=== PATIENT | female | born 1935 | race Caucasian/White ===

== ENCOUNTER 2018-11-16 18:49 | Observation (INO) | payer MEDICARE ==
[2018-11-16 19:50] LABS: BASOPHIL % 0.2 % (0.0-0.4); Basophil (Absolute #) 0.02 (0-0.4); Eosinophil % 6.3 % (0.00-5.0); Eosinophil (Absolute #) 0.57 (0-0.5); Granulocyte Absolute (ANC) 6.21 (1.4-6.9); Hematocrit 39.2 % (35-47); Hemoglobin 12.8 gm/dl (12.0-16.0); Lymphocyte (Absolute #) 1.52 (1.0-4.6); Lymphocytes % 16.9 % (24.0-44.0); Mean Cell Volume 94.5 fl (78-100); Mean Corpuscular Hemoglobin 30.8 pg (26-32); Mean Corpuscular Hgb Concent. 32.7 g/dl (32-36); Mean Platelet Volume 9.8 fl (6-9.5); Monocyte (Absolute #) 0.68 (0.0-1.3); Monocytes % 7.6 % (0.0-12.0); Platelet Count 312 K/mm3 (150-450); Red Blood Count 4.15 M/mm3 (4.1-5.4); Red Cell Distribution Width 13.1 % (11.5-14.0)
[2018-11-16 20:01] LABS: INR 0.95 (0.8-3.0)
[2018-11-16 20:03] LABS: PTT 25.3 SECONDS (25.3-37.0)
[2018-11-16 20:04] LABS: ALBUMIN 4.4 g/dL (3.5-5.0); ANION GAP 13.9 MEQ/L (5-15); BILIRUBIN,TOTAL 0.4 mg/dL (0.2-1.3); Calcium 10.3 mg/dL (8.4-10.2); Creatinine 1 1.11 mg/dL (0.52-1.04); Potassium 3.8 mmol/L (3.5-5.1); Total Protein 7.3 g/dL (6.3-8.2)
--- NOTE | 2018-11-16 20:04 | ERPHSYRPT ---
- History of Present Illness Time Seen by Provider: 11/16/18 19:10 Source: patient, other (daughter) Exam Limitations: no limitations Patient Subjective Stated Complaint: Pt states "I have a really bad headache and all day my left arm and hand has been numb. I am also having a hard time walking straight." Triage Nursing Assessment: Pt alert and oriented X 3, skin pwd Pt ambulates with an unsteady gait, able to speak in clear full sentences. Pt in no apaprent respiratory distress. Physician History: Pt states, she was preparing dinner, when started c/o bifrontal headaches, her left arm became numb. She called her son, who brought her here. She states, her speech was slurred at that time, and felt left facial numbness, but her speech is normal now, her numbness improved, denies any weakness, but had some difficulty walking. She denies visual changes, chest pain, SOB, nausea, vomiting , fall, recent injury or other complaints. She states, once she was diagnosed with stroke years ago, but the MRI was negative. Timing/Duration: hour(s) (2.5) Quality: sharpness Head Pain Location: frontal Severity of Pain-Max: severe Severity of Pain-Current: severe Recent Head Trauma: no recent headache/trauma Modifying Factors: Improves With: other (none) Associated Symptoms: light-headedness, speech problems, trouble walking Previous symptoms: same symptoms as today Allergies/Adverse Reactions: No Known Drug Allergies Allergy (Verified 08/25/16 10:18) Home Medications: Aspirin [Baby Aspirin] 81 mg PO DAILY 12/17/12 [History] Ezetimibe 10 mg [Zetia 10 MG] 10 mg PO DAILY 12/17/12 [History] Metformin HCl [Glucophage] 1,000 mg PO BID 12/17/12 [History] Amlodipine Besylate 5 mg [Norvasc 5 mg] 10 mg PO DAILY 12/23/12 [History] Clopidogrel Bisulfate 75 mg [PLAVIX 75 MG Tablet] 75 mg PO DAILY 12/30/12 [History] Carboxymethylcellulose Sodium [Thera Tears] 1 drop OP BID 09/08/14 [History] Loratadine [Claritin] 10 mg PO DAILY 09/11/14 [History] Omeprazole [Prilosec] 20 mg PO DAILY 09/11/14 [History] Calcium Citrate/Vitamin D3 [Citracal + D Caplet] 2 tab PO BID 11/18/14 [History] Simvastatin 20 mg PO DAILY 11/18/14 [History] Ferrous Sulfate [Iron] 65 mg PO EVENING MEAL 12/31/15 [History] Glimepiride 1 tab PO DAILY 12/31/15 [History] Letrozole 1 tab PO DAILY 12/31/15 [History] Multivitamin W-Minerals/Lutein [Centrum Silver Tablet] 1 tab PO DAILY 12/31/15 [ History] Chlorthalidone 25 mg PO DAILY 02/26/16 [History] Levothyroxine Sodium 50 Mcg [Synthroid 50 Mcg] 50 mcg PO DAILY 02/26/16 [ History] Hx Tetanus, Diphtheria Vaccination/Date Given: Yes Hx Influenza Vaccination/Date Given: Yes Hx Pneumococcal Vaccination/Date Given: Yes Immunizations Up to Date: Yes - Review of Systems Constitutional: No Symptoms Eyes: No Symptoms Ears, Nose, & Throat: No Symptoms Respiratory: No Symptoms Cardiac: No Symptoms Abdominal/Gastrointestinal: No Symptoms Genitourinary Symptoms: No Symptoms Musculoskeletal: No Symptoms Skin: No Symptoms Neurological: Dizziness, Headache, Speech Changes, Other (left arm and facial numbness) Psychological: No Symptoms Endocrine: No Symptoms All Other Systems: Reviewed and Negative - Past Medical History Pertinent Past Medical History: Yes Neurological History: No Pertinent History ENT History: Cataracts Cardiac History: High Cholesterol, Hypertension Respiratory History: No Pertinent History Endocrine Medical History: Diabetes Type II, Hypothyroidism Musculoskeletal History: Arthritis GI Medical History: GERD History: Other Psycho-Social History: No Pertinent History Female Reproductive Disorders: Breast Cancer Other Medical History: Breast CA diagnosed 07/30.., Bladder tie up - Past Surgical History Past Surgical History: Yes Neuro Surgical History: No Pertinent History Cardiac: No Pertinent History Respiratory: No Pertinent History Gastrointestinal: Appendectomy, Cholecystectomy Genitourinary: Other Musculoskeletal: Joint Replacement Female Surgical History: Hysterectomy, Lumpectomy, Other Other Surgical History: cvl port placement. bilateral knee replacement. bladder lift. 4 lymph nodes removed with lumpectomy - Social History Smoking Status: Never smoker Exposure to second hand smoke: Yes Alcohol Use: None Drug Use: none Patient Lives Alone: No Significant Family History: diabetes, hypertension - Female History Hx Now: No - Nursing Vital Signs Nursing Vital Signs: Initial Vital Signs Temperature 98.2 F 11/16/18 18:59 Pulse Rate 92 H 11/16/18 18:59 Respiratory Rate 18 11/16/18 18:59 Blood Pressure 192/93 11/16/18 18:59 O2 Sat by Pulse Oximetry 98 11/16/18 18:59 Pain Scale Pain Intensity 4 - Physical Exam General Appearance: no apparent distress Eye Exam: PERRL/EOMI, eyes nml inspection Ears, Nose, Throat Exam: normal ENT inspection, TMs normal, pharynx normal, moist mucous membranes Neck Exam: normal inspection, non-tender, supple, No carotid bruit, No JVD Respiratory Exam: normal breath sounds, lungs clear, airway intact Cardiovascular Exam: regular rate/rhythm, normal heart sounds, normal peripheral pulses, No murmur, No edema Gastrointestinal/Abdominal Exam: soft, normal bowel sounds, No tenderness, No distention, No mass, No guarding, No pulsatile mass, No rebound Back Exam: normal inspection, No CVA tenderness, No vertebral tenderness Extremity Exam: normal inspection Mental Status Exam: alert, oriented x 3, cooperative, other (NIH scale: facial palsy : 1, limb ataxia: 1, altogether: 2) 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 Exam: normal speech, PERRL, No abnormal gag reflex, No abnormal pupil position, No abnormal speech, No facial asymmetry, No facial droop, No facial paresthesias, No facial weakness, No tongue deviation to L Coordination/Gait Exam: normal finger to nose, normal cerebellar function Motor/Sensory Exam: no motor deficit, no sensory deficit DTR Exam: bicep (R): 2+, bicep (L): 2+, knee (R): 2+, knee (L): 2+, ankle (R): 2 +, ankle (L): 2+ Skin Exam: normal color, warm, dry, No rash Lymphatic Exam: No adenopathy SpO2 Interpretation: normal SpO2: 98 O2 Delivery: Room Air - Course Nursing assessment & vital signs reviewed: Yes EKG Interpreted by Me: RATE (85/min), NORMAL AXIS, NORMAL INTERVALS, Right Bundle Branch Block, Non-specific ST Changes - Radiology Exams Chest X-ray Interpretation: Interpreted by me, Negative - CT Exams Head CT Interpretation: Negative, Tele-radiologist Report, Other (partial opacification of R mastoid air cells.) Ordered Tests: Active Orders 24 hr Category Date Time Status ACCUCHECK [Accucheck] STAT Care 11/16/18 19:18 Active 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 Care 11/16/18 19:27 Active EKG-ER Only STAT Care 11/16/18 19:18 Active IV Insertion STAT Care 11/16/18 19:18 Active Oxygen-ED Only Nasal Cannula 2 lpm Care 11/16/18 19:24 Active CHEST 1 VIEW (PORTABLE) Stat Exams 11/16/18 19:28 Taken HEAD WITHOUT CONTRAST [CT] Stat Exams 11/16/18 19:12 Taken CBC W DIFF Stat Lab 11/16/18 19:10 Completed CMP Stat Lab 11/16/18 19:10 Completed Erythrocyte Sedimentation Rate Stat Lab 11/16/18 19:10 Completed PROTIME WITH INR Stat Lab 11/16/18 19:10 Completed PTT Stat Lab 11/16/18 19:10 Completed TROPONIN Q3H Lab 11/16/18 19:10 Completed TROPONIN Q3H Lab 11/17/18 01:30 Ordered TROPONIN Q3H Lab 11/17/18 04:30 Ordered TROPONIN Q3H Lab 11/17/18 07:30 Ordered UA W/RFX UR CULTURE Stat Lab 11/16/18 20:30 Completed Medication Summary Generic Name Dose Route Start Last Admin Trade Name Freq PRN Reason Stop Dose Admin Aspirin 325 mg 11/17/18 22:11 Ecotrin 325 Mg PO 11/17/18 22:12 NOW ONE Discontinued Medications Generic Name Dose Route Start Last Admin Trade Name Freq PRN Reason Stop Dose Admin Diphenhydramine HCl 25 mg 11/16/18 20:37 11/16/18 21:13 Benadryl 50 Mg/Ml IV 11/16/18 20:38 25 mg STAT ONE Administration Diphenhydramine HCl Confirm 11/16/18 21:08 Benadryl 50 Mg/Ml Administered 11/16/18 21:09 Dose 50 mg .ROUTE .STK-MED ONE Fentanyl Citrate 25 mcg 11/16/18 21:45 Sublimaze 100 Mcg/2 Ml IV 11/16/18 21:46 STAT ONE Ketorolac Tromethamine 15 mg 11/16/18 20:37 11/16/18 21:12 Toradol 30 Mg Injection IV 11/16/18 20:38 15 mg STAT ONE Administration Ketorolac Tromethamine Confirm 11/16/18 21:08 Toradol 30 Mg Injection Administered 11/16/18 21:09 Dose 30 mg .ROUTE .STK-MED ONE Labetalol HCl 10 mg 11/16/18 20:20 11/16/18 21:28 Trandate 20 Mg/5 Ml Syringe IV 11/16/18 20:21 10 mg STAT ONE Administration Labetalol HCl Confirm 11/16/18 20:33 Trandate 20 Mg/5 Ml Syringe Administered 11/16/18 20:34 Dose 20 mg IV .STK-MED ONE Ondansetron HCl 4 mg 11/16/18 21:45 Zofran 4 Mg/2 Ml Vial IV 11/16/18 21:46 STAT ONE Lab/Rad Data: Laboratory Result Diagrams 11/16/18 19:10 11/16/18 19:10 Laboratory Results 11/16/18 11/16/18 11/16/18 Range/Units 20:30 19:10 19:10 WBC (4.0-10.5) K/mm3 RBC (4.1-5.4) M/mm3 Hgb (12.0-16.0) gm/dl Hct (35-47) % MCV (78-100) fl MCH (26-32) pg MCHC (32-36) g/dl RDW (11.5-14.0) % Plt Count (150-450) K/mm3 MPV (6-9.5) fl Gran % (36.0-66.0) % Eos # (Auto) (0-0.5) Absolute Lymphs (auto) (1.0-4.6) Absolute Monos (auto) (0.0-1.3) Lymphocytes % (24.0-44.0) % Monocytes % (0.0-12.0) % Eosinophils % (0.00-5.0) % Basophils % (0.0-0.4) % Absolute Granulocytes (1.4-6.9) Basophils # (0-0.4) ESR (0-20) mm/hr PT 11.0 (9.95-12.35) SECONDS INR 0.95 (0.8-3.0) APTT 25.3 (25.3-37.0) SECONDS Sodium (137-145) mmol/L Potassium (3.5-5.1) mmol/L Chloride (98-107) mmol/L Carbon Dioxide (22-30) mmol/L Anion Gap (5-15) MEQ/L BUN (7-17) mg/dL Creatinine (0.52-1.04) mg/dL Estimated GFR ML/MIN Glucose (74-106) mg/dL Calcium (8.4-10.2) mg/dL Total Bilirubin (0.2-1.3) mg/dL AST (14-36) U/L ALT (0-35) U/L Alkaline Phosphatase (38-126) U/L Troponin I < 0.012 (0.000-0.034) ng/mL Serum Total Protein (6.3-8.2) g/dL Albumin (3.5-5.0) g/dL Urine Color YELLOW (YELLOW) Urine Appearance CLEAR (CLEAR) Urine pH 8.0 (5-6) Ur Specific [place] 1.015 (1.005-1.025) Urine Protein NEGATIVE (Negative) Urine Ketones NEGATIVE (NEGATIVE) Urine Blood NEGATIVE (0-5) Prasad/ul Urine Nitrite NEGATIVE (NEGATIVE) Urine Bilirubin NEGATIVE (NEGATIVE) Urine Urobilinogen NEGATIVE (0-1) mg/dL Ur Leukocyte Esterase NEGATIVE (NEGATIVE) Urine WBC (Auto) 0-2 (0-5) /HPF Urine RBC (Auto) NONE (0-2) /HPF U Epithel Cells (Auto) NONE (FEW) /HPF Urine Bacteria (Auto) NONE (NEGATIVE) /HPF Urine Culture Reflexed NO (NO) Urine Glucose NEGATIVE (NEGATIVE) mg/dL 11/16/18 11/16/18 Range/Units 19:10 19:10 WBC 9.0 (4.0-10.5) K/mm3 RBC 4.15 (4.1-5.4) M/mm3 Hgb 12.8 (12.0-16.0) gm/dl Hct 39.2 (35-47) % MCV 94.5 (78-100) fl MCH 30.8 (26-32) pg MCHC 32.7 (32-36) g/dl RDW 13.1 (11.5-14.0) % Plt Count 312 (150-450) K/mm3 MPV 9.8 H (6-9.5) fl Gran % 69.0 H (36.0-66.0) % Eos # (Auto) 0.57 H (0-0.5) Absolute Lymphs (auto) 1.52 (1.0-4.6) Absolute Monos (auto) 0.68 (0.0-1.3) Lymphocytes % 16.9 L (24.0-44.0) % Monocytes % 7.6 (0.0-12.0) % Eosinophils % 6.3 H (0.00-5.0) % Basophils % 0.2 (0.0-0.4) % Absolute Granulocytes 6.21 (1.4-6.9) Basophils # 0.02 (0-0.4) ESR 12 (0-20) mm/hr PT (9.95-12.35) SECONDS INR (0.8-3.0) APTT (25.3-37.0) SECONDS Sodium 135 L (137-145) mmol/L Potassium 3.8 (3.5-5.1) mmol/L Chloride 97 L (98-107) mmol/L Carbon Dioxide 28 (22-30) mmol/L Anion Gap 13.9 (5-15) MEQ/L BUN 23 H (7-17) mg/dL Creatinine 1.11 H (0.52-1.04) mg/dL Estimated GFR 50.1 ML/MIN Glucose 161 H (74-106) mg/dL Calcium 10.3 H (8.4-10.2) mg/dL Total Bilirubin 0.40 (0.2-1.3) mg/dL AST 20 (14-36) U/L ALT 21 (0-35) U/L Alkaline Phosphatase 70 (38-126) U/L Troponin I (0.000-0.034) ng/mL Serum Total Protein 7.3 (6.3-8.2) g/dL Albumin 4.4 (3.5-5.0) g/dL Urine Color (YELLOW) Urine Appearance (CLEAR) Urine pH (5-6) Ur Specific [place] (1.005-1.025) Urine Protein (Negative) Urine Ketones (NEGATIVE) Urine Blood (0-5) Prasad/ul Urine Nitrite (NEGATIVE) Urine Bilirubin (NEGATIVE) Urine Urobilinogen (0-1) mg/dL Ur Leukocyte Esterase (NEGATIVE) Urine WBC (Auto) (0-5) /HPF Urine RBC (Auto) (0-2) /HPF U Epithel Cells (Auto) (FEW) /HPF Urine Bacteria (Auto) (NEGATIVE) /HPF Urine Culture Reflexed (NO) Urine Glucose (NEGATIVE) mg/dL - Progress Progress: improved Air Movement: good Progress Note: 11/16/18 23:12 Pt was evaluated by Teleneurology, discussed the case with Dr Blum, he agreed with the plan to admit her for observation, she is not candidate for thrombolytic treatment, blood pressure improved after Labetalol and ASA given, BP currently 178/82, headaches improved, we also called Dr Fried, discussed her results and current condition, he agreed to admit her for observation. Patient and her daughter were informed and agreed. Blood Culture(s) Obtained: No Antibiotics given: No Discussed with .: Fariha Will see patient in: hospital (observation) Counseled pt/family regarding: lab results, diagnosis, rad results - Departure Departure Disposition: Observation Clinical Impression: Transient ischemic attack (TIA) Hypertension Qualifiers: Hypertension type: unspecified Qualified Code(s): I10 - Essential (primary) hypertension Headache Qualifiers: Headache type: unspecified Headache chronicity pattern: acute headache Intractability: not intractable Qualified Code(s): R51 - Headache Condition: Stable Critical Care Time: Yes Critical Care Time(excluding separately billable procedures): 30-74 minutes Referrals: DIVINE FRIED [Primary Care Provider] - Instructions: Headache, Adult (DC)
[2018-11-16 20:15] LABS: Erythrocyte Sedimentation Rate 12 mm/hr (0-20)
[2018-11-16] MEDS ORDERED: TRANDATE 20 MG/5 ML SYRINGE IV ONE ×2 (20:20→20:33)
[2018-11-16] MEDS ORDERED: BENADRYL 50 MG/ML IV ONE (20:37)
[2018-11-16] MEDS ORDERED: TORAdol 30 mg Injection IV ONE (20:37)
[2018-11-16 20:45] LABS: Appearance CLEAR (CLEAR); Bilirubin NEGATIVE (NEGATIVE); Blood NEGATIVE Ery/ul (0-5); Glucose NEGATIVE (NEGATIVE); Ketones NEGATIVE (NEGATIVE); Leukocyte Esterase NEGATIVE (NEGATIVE); Nitrite NEGATIVE (NEGATIVE); Protein,Urine Dip NEGATIVE (Negative); Specific Gravity 1.015 (1.005-1.025); Urobilinogen NEGATIVE mg/dL (0-1); WBC 0-2 /HPF (0-5)
[2018-11-16] MEDS ORDERED: BENADRYL 50 MG/ML ONE (21:08)
[2018-11-16] MEDS ORDERED: TORAdol 30 mg Injection ONE (21:08)
[2018-11-16] MEDS ORDERED: Zofran 4 MG/2 ML VIAL IV ONE (21:45)
[2018-11-16] MEDS ORDERED: SUBLIMAZE 100 MCG/2 ML IV ONE (21:45)
[2018-11-16] MEDS ORDERED: MORPHINE SULFATE 2 MG INJ IV PRN (23:17)
[2018-11-16] MEDS ORDERED: Zofran 4 MG/2 ML VIAL IV PRN (23:17)
[2018-11-16] MEDS ORDERED: NovoLIN R SQ PRN (23:17)
[2018-11-16] MEDS ORDERED: TYLENOL 325 MG PO PRN (23:17)
[2018-11-17] MEDS ORDERED: SUBLIMAZE 100 MCG/2 ML ONE (00:13)
[2018-11-17] MEDS ORDERED: Ecotrin 325 MG ONE (00:20)
[2018-11-17 05:51] LABS: BASOPHIL % 0.2 % (0.0-0.4); Basophil (Absolute #) 0.02 (0-0.4); Eosinophil % 3.1 % (0.00-5.0); Granulocyte Absolute (ANC) 6.25 (1.4-6.9); Granulocytes % 64.7 % (36.0-66.0); Hematocrit 35.4 % (35-47); Hemoglobin 11.6 gm/dl (12.0-16.0); Lymphocyte (Absolute #) 2.25 (1.0-4.6); Lymphocytes % 23.3 % (24.0-44.0); Mean Cell Volume 94.1 fl (78-100); Mean Corpuscular Hgb Concent. 32.8 g/dl (32-36); Mean Platelet Volume 9.5 fl (6-9.5); Monocyte (Absolute #) 0.84 (0.0-1.3); Monocytes % 8.7 % (0.0-12.0); Platelet Count 287 K/mm3 (150-450); Red Blood Count 3.76 M/mm3 (4.1-5.4); Red Cell Distribution Width 13.1 % (11.5-14.0); White Blood Count 9.7 K/mm3 (4.0-10.5)
[2018-11-17 06:07] LABS: ANION GAP 14.5 MEQ/L (5-15); Calcium 9.3 mg/dL (8.4-10.2); Creatinine 1 1.05 mg/dL (0.52-1.04); Potassium 3.9 mmol/L (3.5-5.1)
[2018-11-17 06:13] LABS: Mean Corpuscular Hemoglobin 30.8 pg (26-32)
--- NOTE | 2018-11-17 08:37 | XRAY ---
Indication: Headache. Left arm/hand weakness. Gait changes. Multiple contiguous axial images obtained through the head without contrast. Comparison: December 17, 2012. There is again age-appropriate global atrophy and mild periventricular degenerative micro-ischemia bilaterally. No acute intracranial hemorrhage, abnormal extra-axial fluid collection, or mass effect. Fourth ventricle is midline without hydrocephalus. Bony calvarium intact. Visualized paranasal sinuses are clear. Again partial opacification of the right mastoid air cells. Impression: Nonacute senile brain. Stable partial opacification of the right mastoid air cells presumed inflammatory. CT DI 68.98
--- NOTE | 2018-11-17 08:41 | XRAY ---
Indication: Dizziness. Headache. Left upper extremity numbness. Comparison: October 03, 2014. Portable chest demonstrates new left peripheral mid lung patchy airspace opacity. Stable left base atelectasis/scarring. Remaining heart and lungs unremarkable. Bony thorax intact again with mild osteopenia and degenerative changes. Interval L2 kyphoplasty. Stable left axillary surgical clips. Impression: New left midlung airspace disease. Correlate clinically. Comment: Left lung finding not reported on preliminary interpretation by the ER clinician. Telephone report given to Dr. Ballard at 0840 hrs. on November 17, 2018.
[2018-11-17] MEDS ORDERED: ULTRAM 50 MG PO PRN (09:21)
[2018-11-17] MEDS ORDERED: ULTRAM 50 MG PO SCH (09:30)
[2018-11-17] MEDS ORDERED: Calcium 500MG W/Vit D Tablet PO SCH (10:00)
[2018-11-17] MEDS ORDERED: MAG-OX 400 PO SCH (10:00)
[2018-11-17] MEDS ORDERED: ECOTRIN 81 MG PO SCH (10:00)
[2018-11-17] MEDS ORDERED: NON-FORMULARY ITEM (Ferrous Gluconate [Ferrous Gluconate] 324 MG) PO SCH (10:00)
[2018-11-17] MEDS ORDERED: CALCIUM CITRATE PO SCH (10:00)
[2018-11-17] MEDS ORDERED: lamISIL 250 MG PO SCH (10:00)
[2018-11-17] MEDS ORDERED: NON-FORMULARY ITEM (Carboxymethylcellulose Sodium [Thera Tears] 1 DROP) OP SCH (10:00)
[2018-11-17] MEDS ORDERED: NON-FORMULARY ITEM (Multivitamin W-Minerals/Lutein [Centrum Silver Tablet] 1 TAB) PO SCH (10:00)
[2018-11-17] MEDS ORDERED: LETROZOLE PO SCH (10:00)
[2018-11-17] MEDS ORDERED: Zetia 10 MG PO SCH (10:00)
[2018-11-17] MEDS ORDERED: PLAVIX 75 MG Tablet PO SCH (10:00)
[2018-11-17] MEDS ORDERED: MEDICATION INTERVENTION MC SCH (10:00)
[2018-11-17] MEDS ORDERED: Protonix 40MG Tablet PO SCH (10:00)
[2018-11-17] MEDS ORDERED: CLARITIN 10 MG PO SCH (10:00)
[2018-11-17] MEDS ORDERED: FEOSOL 325 MG PO SCH (10:00)
[2018-11-17] MEDS ORDERED: NON-FORMULARY ITEM (Fexofenadine Hcl [Allegra] 180 MG) PO SCH (10:00)
[2018-11-17] MEDS ORDERED: BABY ASPIRIN 81 MG CHEW PO SCH (10:00)
[2018-11-17] MEDS ORDERED: Amaryl 2 MG PO SCH (10:00)
[2018-11-17] MEDS ORDERED: NORVASC 5 MG PO SCH (10:00)
[2018-11-17] MEDS ORDERED: THERAGRAN MULTIVITAMIN PO SCH (10:00)
[2018-11-17] MEDS ORDERED: GLIMEPIRIDE PO SCH (10:00)
[2018-11-17] MEDS ORDERED: NON-FORMULARY ITEM (Omeprazole [Prilosec] 20 MG) PO SCH (10:00)
[2018-11-17] MEDS ORDERED: VITAMIN D3 PO SCH (10:00)
[2018-11-17] MEDS: Artificial Tears 15 ML OP SCH ×2 (10:29→20:38)
[2018-11-17] MEDS: SYNTHROID 75 MCG PO SCH (10:56)
[2018-11-17] MEDS: Glucophage 500 MG PO SCH ×2 (10:56→17:11)
--- NOTE | 2018-11-17 13:55 | SSS ---
DISCHARGE DIAGNOSES: 1) HEADACHE. 2) WEAKNESS OF LEFT ARM. HOSPITAL COURSE: The patient is an 83 year-old white female who reports she had a really bad headache all day long. She reported she never has headaches. She tried medication but did not improve. She began having some problems with what she thought was some slurring of the speech and left arm numbness and difficulty with dropping things with the left hand. She presented to the emergency room where tele-neurology consult was obtained. The patient was improving during her stay in the emergency room and by the next morning she had essentially resolved to her normal state of health and the headache was much improved but not gone. PAST MEDICAL HISTORY: The patient had history of diabetes mellitus type 2. She previously had breast cancer, hypothyroid, hypertension and hyperlipidemia. PAST SURGICAL HISTORY: She has had appendectomy, cholecystectomy, hysterectomy, lumpectomy and bilateral knee replacements. HOME MEDICATIONS: Her current home medications are aspirin 81 mg a day, Zetia 10 mg a day, Metformin 1,000 mg b.i.d., Norvasc 5 mg two tablets daily, Plavix 75 mg a day, loratadine 10 mg a day, omeprazole 20 mg a day, Simvastatin 20 mg a day, iron 65 mg a day, Glimepiride 1 tablet daily, omeprazole 1 tablet daily, chlorthalidone 25 mg daily, levothyroxine 50 mcg daily. ALLERGIES: NKDA. PHYSICAL EXAMINATION: The patient's vital signs on admission temperature 98.2F, pulse 92, respiratory rate 18, blood pressure 192/93. O2 saturations 98% on room air. HEENT: Normocephalic, atraumatic. Pupils equal round reactive to light. Extraocular movements intact. Oropharynx is pink and moist. NECK: Supple without lymphadenopathy, thyromegaly or JVD. CHEST: Clear to auscultation. HEART: Regular rate and rhythm without murmurs, rubs or gallops. ABDOMEN: Soft. No palpable masses. EXTREMITIES: Without cyanosis, clubbing or edema. NEUROLOGIC: The patient is alert and oriented x3. There were no focal neurologic signs at this time. LAB DATA AND TESTS: Normal CBC. Her sugar 122, BUN 22, creatinine 1.05, sodium 135. Patient's international normalized ratio was 0.95. UA normal. CT scan of the brain was essentially negative senile brain nonacute. Chest x-ray showed a new left mid lung airspace disease however there was no evidence of pneumonia whatsoever. The patient is entirely symptom-free in regards to her chest. ASSESSMENT: The patient has had headache and hypertension possibly leading to neurologic symptoms. She had an apparent transient ischemic attack as the patient completely resolved to her normal state of health presently. Her headache is much resolved. I will give her some tramadol to see if we can resolve it completely. The patient again did have a tele-neurology consult. She is already on aspirin and Plavix presently. The patient has resolved her symptoms and appears to be ready for discharge back home again. She is instructed to come back to the hospital if she has any symptoms like she had previously with the slurred speech and arm weakness and numbness. She is to see me in the office in one week in follow up otherwise. She will continue her home medications including aspirin and Plavix.
[2018-11-17] MEDS ORDERED: NON-FORMULARY ITEM (Metformin Hcl [Glucophage] 1,000 MG) PO SCH (17:00)
[2018-11-17] MEDS ORDERED: ZOCOR 20MG PO SCH (22:00)
[2018-11-17] MEDS ORDERED: Ecotrin 325 MG PO ONE (22:11)
[2018-11-18] MEDS ORDERED: SYNTHROID 50 MCG PO SCH (06:00)
[2018-11-18] MEDS: SYNTHROID 75 MCG PO SCH (06:03)
[2018-11-18 06:36] VITALS: O2SAT 94
[2018-11-18] MEDS: Glucophage 500 MG PO SCH (07:31)
[2018-11-18 08:26] VITALS: BP 146/66; PULSE 74
[2018-11-19] MEDS ORDERED: Fosamax 70 MG PO SCH (09:45)
== END 2018-11-18 09:47 | disposition home or self-care (01) ==
LOC: ED 18:49 → MED SURG 11-17 00:48
PROVIDERS: ADMIT Family Medicine; ATTEND Family Medicine
DX: R51 Headache (principal); G45.9 Transient cerebral ischemic attack, unspecified; R53.1 Weakness; E11.9 Type 2 diabetes mellitus without complications; Z85.3 Personal history of malignant neoplasm of breast; I10 Essential (primary) hypertension; E78.5 Hyperlipidemia, unspecified; E03.9 Hypothyroidism, unspecified; Z79.01 Long term (current) use of anticoagulants; Z79.899 Other long term (current) drug therapy
CPT/HCPCS: 70450; 80048; 80053; 81001; 82962; 83036; 84484; 85025; 85610; 85652; 85730; 93005; 93041; 93268; 94762; 96374; 96375; 99291; G0378; Q3014; 36000; 36415; 71045; 99285; J1200; J1885; J2405; J3010; A9270-GY

== ENCOUNTER 2021-12-20 10:28 | Emergency (ER) | payer MEDICARE ==
--- NOTE | 2021-12-20 10:32 | ERPHSYRPT ---
- History of Present Illness Time Seen by Provider: 12/20/21 10:31 Source: patient, family, EMS Exam Limitations: clinical condition Physician History: This is an 86-year-old white female patient of Dr. López who has had a history of TIAs in the past as well as recurrent UTIs and presents via EMS with a mental status change. At approximately 8:30 AM this morning, the patient was texting her daughter. Soon after, the patient's son, who she lives with, noticed the mom was not speaking. There is a question of right facial droop as well. She was moving all extremities but not as usual per the son. Ambulance service was called. Blood sugar was 277. Patient has a history of diabetes, hypertension, hypothyroidism, gastroesophageal reflux disease, elevated cholesterol, and breast cancer in the past. Patient's initial blood pressure upon arrival to the emergency department was 198/112. Patient was sent directly to the CAT scan for stroke protocol CAT scan of the head. Timing/Duration: today Severity: moderate Character of Deficits: new weakness, unable to speak Deficits: decrease ability to stand, decrease ability to walk Baseline/Normal Cognition: alert oriented x 3 Current Cognition: alert but confused Baseline Gait: walks w/o assistance Associated Symptoms: confusion, other (Trouble speaking) Allergies/Adverse Reactions: No Known Drug Allergies Allergy (Verified 12/20/21 10:39) Home Medications: Aspirin [Baby Aspirin] 81 mg PO DAILY 12/17/12 [History] Ezetimibe 10 mg [Zetia 10 MG] 10 mg PO DAILY 12/17/12 [History] Metformin HCl [Glucophage] 1,000 mg PO BIDWM 12/17/12 [History] Amlodipine Besylate 5 mg [Norvasc 5 mg] 10 mg PO DAILY 12/23/12 [History] Clopidogrel Bisulfate 75 mg [PLAVIX 75 MG Tablet] 75 mg PO DAILY 12/30/12 [History] Carboxymethylcellulose Sodium [Thera Tears] 1 drop OP BID 09/08/14 [History] Omeprazole [Prilosec] 20 mg PO DAILY 09/11/14 [History] Calcium Citrate/Vitamin D3 [Citracal + D Caplet] 1 tab PO DAILY 11/18/14 [History] Simvastatin 20 mg PO DAILY 04/04/15 [History] Glimepiride 1 tab PO DAILY 12/31/15 [History] Letrozole 1 tab PO DAILY 12/31/15 [History] Multivitamin W-Minerals/Lutein [Centrum Silver Tablet] 1 tab PO DAILY 12/31/15 [History] Chlorthalidone 25 mg PO DAILY 02/26/16 [History] Levothyroxine Sodium 50 Mcg [Synthroid 50 Mcg] 75 mcg PO 0600 02/26/16 [History] Alendronate Sodium 70 mg PO WEEKLY 11/17/18 [History] Ferrous Gluconate 324 mg PO DAILY 11/17/18 [History] Fexofenadine HCl [Ruby] 180 mg PO DAILY 11/17/18 [History] Magnesium Oxide 400 mg [Mag-Ox 400] 400 mg PO DAILY 11/17/18 [History] terbinafine HCL [Lamisil] 250 mg PO DAILY 11/17/18 [History] Hx Tetanus, Diphtheria Vaccination/Date Given: Yes Hx Influenza Vaccination/Date Given: Yes Hx Pneumococcal Vaccination/Date Given: Yes - Past Medical History Pertinent Past Medical History: Yes Neurological History: No Pertinent History ENT History: Cataracts Cardiac History: High Cholesterol, Hypertension Respiratory History: No Pertinent History Endocrine Medical History: Diabetes Type II, Hypothyroidism Musculoskeletal History: Arthritis GI Medical History: GERD History: Other Psycho-Social History: No Pertinent History Female Reproductive Disorders: Breast Cancer Other Medical History: Breast CA diagnosed 07/30.., Bladder tie up - Past Surgical History Past Surgical History: Yes Neuro Surgical History: No Pertinent History Cardiac: No Pertinent History Respiratory: No Pertinent History Gastrointestinal: Appendectomy, Cholecystectomy Genitourinary: Other Musculoskeletal: Joint Replacement Female Surgical History: Hysterectomy, Lumpectomy, Other Other Surgical History: cvl port placement. bilateral knee replacement. bladder lift. 4 lymph nodes removed with lumpectomy. Back surgery - Social History Smoking Status: Never smoker Exposure to second hand smoke: Yes Alcohol Use: None Drug Use: none Patient Lives Alone: No Significant Family History: diabetes, hypertension - Nursing Vital Signs Nursing Vital Signs: Initial Vital Signs Temperature 98.7 F 12/20/21 10:39 Pulse Rate 89 12/20/21 10:39 Respiratory Rate 20 12/20/21 10:39 Blood Pressure 198/112 12/20/21 10:39 O2 Sat by Pulse Oximetry 96 12/20/21 10:39 Pain Scale Pain Intensity 0 - Therese Coma Scale Best Eye Response (Therese): (4) open spontaneously Best Verbal Response ([place]): (1) no verbal response Best Motor Response (Therese): (6) obeys commands [place] Total: 11 - Physical Exam General Appearance: no apparent distress, alert Eye Exam: bilateral eye: normal inspection, PERRL, EOMI Ears, Nose, Throat Exam: normal ENT inspection, moist mucous membranes Neck Exam: normal inspection, non-tender, supple, full range of motion Respiratory: normal breath sounds, lungs clear, airway intact, No chest tenderness, No respiratory distress Cardiovascular: regular rate/rhythm, normal heart sounds, normal peripheral pulses Gastrointestinal: soft, normal bowel sounds, No tenderness Pelvic Exam: not done Rectal Exam: not done Back Exam: normal inspection, No CVA tenderness, No vertebral tenderness Extremity Exam: normal inspection, pelvis stable Mental Status: alert, other (Looks at you but does not answer questions. 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 Patient looks at you as though she understands when you are speaking to her but is unable to speak. She does not open her mouth or smile or stick her tongue out. Her facial exam does not appear to be 1 of an equal drooping. Ordered Tests: Active Orders 24 hr Category Date Time Status Catheter-[place] STAT Care 12/20/21 10:40 Active EKG-ER Only STAT Care 12/20/21 10:40 Active IV Insertion STAT Care 12/20/21 10:40 Active NPO (ED) STAT Care 12/20/21 10:40 Active Pulse Oximetry (ED) STAT Care 12/20/21 10:40 Active Tele-Health Consult ROUTINE Cons 12/20/21 12:02 Active HEAD WITHOUT CONTRAST [CT] Stat Exams 12/20/21 10:32 Completed CBC W DIFF Stat Lab 12/20/21 10:45 Completed CMP Stat Lab 12/20/21 10:45 Completed T4 (Thyroxine) Stat Lab 12/20/21 Completed TSH, 3RD Generation Stat Lab 12/20/21 10:45 Completed UA W/RFX CULTURE Stat Lab 12/20/21 11:25 Ordered Medication Summary Discontinued Medications Generic Name Dose Route Start Last Admin Trade Name Cezar PRN Reason Stop Dose Admin Labetalol HCl 20 mg 12/20/21 10:57 12/20/21 11:06 Labetalol Hcl 100 Mg/20 Ml Mdv IV 12/20/21 10:58 Not Given STAT ONE Labetalol HCl Confirm 12/20/21 11:04 Labetalol Hcl 20 Mg/4 Ml Disp.Syringe Administered 12/20/21 11:05 Dose 20 mg IV .STK-MED ONE Labetalol HCl 20 mg 12/20/21 11:07 12/20/21 11:08 Labetalol Hcl 20 Mg/4 Ml Disp.Syringe IV 12/20/21 11:08 20 mg STAT ONE Administration Lab/Rad Data: Laboratory Result Diagrams 12/20/21 10:45 12/20/21 10:45 Laboratory Results 12/20/21 12/20/21 12/20/21 Range/Units Unknown 10:45 10:45 WBC 9.0 (4.0-10.5) K/mm3 RBC 4.41 (4.1-5.4) M/mm3 Hgb 13.5 (12.0-16.0) gm/dl Hct 41.1 (35-47) % MCV 93.2 (78-100) fl MCH 30.6 (26-32) pg MCHC 32.8 (32-36) g/dl RDW 13.5 (11.5-14.0) % Plt Count 321 (150-450) K/mm3 MPV 9.6 (7.5-11.0) fl Gran % 86.4 H (36.0-66.0) % Eos # (Auto) 0.03 (0-0.5) Absolute Lymphs (auto) 0.92 L (1.0-4.6) Absolute Monos (auto) 0.27 (0.0-1.3) Lymphocytes % 10.2 L (24.0-44.0) % Monocytes % 3.0 (0.0-12.0) % Eosinophils % 0.3 (0.00-5.0) % Basophils % 0.1 (0.0-0.4) % Absolute Granulocytes 7.75 H (1.4-6.9) Basophils # 0.01 (0-0.4) Sodium 136 L (137-145) mmol/L Potassium 3.7 (3.5-5.1) mmol/L Chloride 97 L (98-107) mmol/L Carbon Dioxide 27 (22-30) mmol/L Anion Gap 15.1 H (5-15) MEQ/L BUN 17 (7-17) mg/dL Creatinine 0.74 (0.52-1.04) mg/dL Estimated GFR > 60.0 ML/MIN Glucose 196 H (74-106) mg/dL Calcium 9.3 (8.4-10.2) mg/dL Total Bilirubin 0.60 (0.2-1.3) mg/dL AST 25 (14-36) U/L ALT 19 (0-35) U/L Alkaline Phosphatase 58 (38-126) U/L Serum Total Protein 7.2 (6.3-8.2) g/dL Albumin 4.4 (3.5-5.0) g/dL Thyroxine (T4) 11.5 H (5.53-10.96) ug/dL TSH 3rd Generation 1.620 (0.47-4.68) mIU/L - Progress Progress: improved, re-examined Progress Note: 12/20/21 11:23 CAT scan of the head without contrast shows a nonacute senile brain with partial opacification of the right mastoid air cells. There is no evidence of any intracranial bleed Clinical update: After patient received labetalol 20 mg intravenously, her systolic blood pressure dropped into the 140s. Clinically, patient now moves edson th her upper extremities and opens her mouth and sticks out her tongue. The tongue is midline. She is still nonverbal. 12/20/21 12:40 Medical decision making: Dr. Schrader, our telehealth neurologist conversion developer, recommended infusion (bolus plus hour infusion) of tPA. We gave the patient a bolus of 5.7 mg of intravenous tPA over a minute. This was followed by 51.7 mg over 1 hour infusion. Clinically, the patient is improving. She is still not speaking but is much more alert and responding to questioning. She is moving all her extremities. She has no pain complaints. Her systolic blood pressure has improved in the 140s to low 150 range. 12/20/21 12:55 Medical decision making: I contacted Dr. Syed, the emergency room physician at [facility] in [facility]. I reviewed the patient history, physical findings, laboratory results and radiographic findings as well as EKG results. I made him aware of our treatment that we provided the patient while here. He accepts the patient in transfer. Counseled pt/family regarding: lab results, diagnosis, rad results - Departure Departure Disposition: Transfer Clinical Impression: CVA (cerebral vascular accident), Aphasia due to acute cerebrovascular accident (CVA), Hypertensive urgency Condition: Fair Critical Care Time: Yes Critical Care Time(excluding separately billable procedures): Critical 30-74 mins (50 minutes) Referrals: DIVINE LÓPEZ [Primary Care Provider] - Follow up/PCP as directed
--- NOTE | 2021-12-20 10:54 | XRAY ---
Indication: TIAs. Stroke. Multiple contiguous axial images obtained through the head without contrast. Comparison: November 16, 2018. Again age-appropriate global atrophy and mild periventricular degenerative micro-ischemia bilaterally. No acute intracranial hemorrhage, abnormal extra-axial fluid collection, or mass effect. Fourth ventricle is midline without hydrocephalus. Bony calvarium intact. Again partial opacification of right mastoid air cells presumed inflammatory. Visualized paranasal sinuses are clear. Impression: Continued nonacute senile brain with again partial opacification right mastoid air cells. Follow-up CT or MRI may yield further information if there remains further clinical concern.
[2021-12-20] MEDS ORDERED: TRANDATE 100MG/20 ML MDV IV ONE (10:57)
[2021-12-20] MEDS ORDERED: TRANDATE 20 MG/4 ML SYRINGE IV ONE ×2 (11:04→11:07)
[2021-12-20 11:15] LABS: Absolute Neutrophil Ct (ANC) 7.75 (1.4-6.9); Basophil (Absolute #) 0.01 (0-0.4); Eosinophil % 0.3 % (0.00-5.0); Eosinophil (Absolute #) 0.03 (0-0.5); Hematocrit 41.1 % (35-47); Hemoglobin 13.5 gm/dl (12.0-16.0); Lymphocyte (Absolute #) 0.92 (1.0-4.6); Lymphocytes % 10.2 % (24.0-44.0); Mean Cell Volume 93.2 fl (78-100); Mean Corpuscular Hemoglobin 30.6 pg (26-32); Mean Corpuscular Hgb Concent. 32.8 g/dl (32-36); Mean Platelet Volume 9.6 fl (7.5-11.0); Monocyte (Absolute #) 0.27 (0.0-1.3); Neutrophil % 86.4 % (36.0-66.0); Platelet Count 321 K/mm3 (150-450); Red Blood Count 4.41 M/mm3 (4.1-5.4); Red Cell Distribution Width 13.5 % (11.5-14.0)
[2021-12-20 12:00] LABS: ALBUMIN 4.4 g/dL (3.5-5.0); ALKALINE PHOSPHATASE 58 U/L (38-126); ANION GAP 15.1 MEQ/L (5-15); BLOOD UREA NITROGEN 17 mg/dL (7-17); CHLORIDE 97 mmol/L (98-107); Calcium 9.3 mg/dL (8.4-10.2); Carbon Dioxide 27 mmol/L (22-30); Creatinine 1 0.74 mg/dL (0.52-1.04); EST GLOMERULAR FILTRATION RATE > 60.0 ML/MIN; Glucose 196 mg/dL (74-106); Potassium 3.7 mmol/L (3.5-5.1); SGOT/AST 25 U/L (14-36); SGPT/ALT 19 U/L (0-35); SODIUM 136 mmol/L (137-145); Total Protein 7.2 g/dL (6.3-8.2)
[2021-12-20] MEDS ORDERED: Activase 100 MG IV ONE (12:30)
[2021-12-20 12:46] LABS: RBC 0-2 /HPF (0-2); WBC 0-2 /HPF (0-5)
[2021-12-20 12:59] LABS: Appearance CLEAR (CLEAR); Bilirubin NEGATIVE (NEGATIVE); Glucose NEGATIVE (NEGATIVE); Ketones NEGATIVE (NEGATIVE); Nitrite NEGATIVE (NEGATIVE); Protein,Urine Dip 30 (Negative); RBC NEGATIVE Ery/ul (0-5); Urine Cultured Indicated? NO; Urobilinogen 0.2 mg/dL (0-1)
[2021-12-20 13:00] LABS: Dipstick done @ ? MAIN LAB
[2021-12-20 13:11] VITALS: BP 144/78; PULSE 78; O2SAT 95
== END 2021-12-20 13:00 | disposition short-term general hospital (02) ==
LOC: ED 10:28
DX: I63.9 Cerebral infarction, unspecified (principal); R47.01 Aphasia; R53.1 Weakness; I10 Essential (primary) hypertension; I16.0 Hypertensive urgency; E78.5 Hyperlipidemia, unspecified; E11.65 Type 2 diabetes mellitus with hyperglycemia; Z79.01 Long term (current) use of anticoagulants; Z79.899 Other long term (current) drug therapy; Z79.84 Long term (current) use of oral hypoglycemic drugs
CPT/HCPCS: 36000; 36415; 51702; 70450; 80053; 81015; 84436; 84443; 85025; 93005; 94760; 96374; 99285; 99291; J2997

== ENCOUNTER 2022-02-05 19:02 | Observation (INO) | payer MEDICARE ==
[2022-02-05 19:55] LABS: Absolute Neutrophil Ct (ANC) 4.02 x10^3/uL (1.4-6.9); Basophil (Absolute #) 0.05 x10^3/uL (0-0.4); Eosinophil % 5.2 % (0.00-5.0); Eosinophil (Absolute #) 0.39 x10^3/uL (0-0.5); Hematocrit 39.8 % (35-47); Hemoglobin 13.1 g/dL (12.0-16.0); Lymphocyte (Absolute #) 2.26 x10^3/uL (1.0-4.6); Lymphocytes % 30.4 % (24.0-44.0); Mean Cell Volume 93.9 fL (78-100); Mean Corpuscular Hemoglobin 30.9 pg (26-32); Mean Corpuscular Hgb Concent. 32.9 g/dL (32-36); Mean Platelet Volume 9.7 fL (7.5-11.0); Monocyte (Absolute #) 0.69 x10^3/uL (0.0-1.3); Monocytes % 9.3 % (0.0-12.0); Neutrophil % 54.1 % (36.0-66.0); Platelet Count 340 x10^3/uL (150-450); Red Blood Count 4.24 x10^6/uL (4.1-5.4); Red Cell Distribution Width 13.2 % (11.5-14.0); White Blood Count 7.4 x10^3/uL (4.0-10.5)
--- NOTE | 2022-02-05 20:04 | ERPHSYRPT ---
- History of Present Illness Time Seen by Provider: 02/05/22 19:20 Patient Subjective Stated Complaint: pt states "I was taking pizza out of the oven and my left hand went weak and numb." Triage Nursing Assessment: pt ambulated into the er; pt is axo x4; c/o left hand numbness; pt denies pain; pt states that numbness has subsided; pt states she had TPA last month for similar symptoms; pupils are 3 mm and PERRL; wendie strong core placer; wendie strong pedal pushes; strong wendie radial pulses; strong wendie pedal pulses; clear apical heart tone; no JVD present; clear lung sounds in all lobes; NIH 0; swallow eval negative, no cough or difficulty after drinking; hypertensive 208/102 Physician History: 36-year-old female presents emergency department for evaluation of transient numbness and weakness to her left hand. At approximately 6 PM patient was placing a pizza into an oven. At that time she developed an acute onset of numbness and weakness to her left hand. Patient states the symptoms were isolated to the left hand. Family stated that patient appeared to have a 'deer in the headlights appearance'. Symptoms lasted on the order of minutes before complete resolution. Upon arrival to our ED patient was asymptomatic. Patient states she had a stroke on Mother's Day December 22, 2021. Patient received tPA at that time and was transferred to [facility]. Patient is scheduled to have an outpatient carotid ultrasound. Patient currently feels well. No headache. No blurred vision. No nausea vomiting. No numbness tingling or weakness. Patient conversant with normal speech. No slurred speech. No facial droop. Daughter at bedside. They voiced no other complaints or concerns at this time. Portions of this note were created with voice recognition technology. There may be grammatical, spelling, punctuation or sound alike errors Timing/Duration: today Severity: mild Character of Deficits: new weakness, other (Numbness and weakness) Deficits: no difficulties Baseline/Normal Cognition: alert oriented x 3 Current Cognition: alert oriented x 3 Baseline Gait: walks w/o assistance Associated Symptoms: confusion (Transient confusion), No muscle spasms, No seizures, No vision changes, No chest pain, No headache Allergies/Adverse Reactions: No Known Drug Allergies Allergy (Verified 02/05/22 19:07) Home Medications: Aspirin [Baby Aspirin] 81 mg PO DAILY 12/17/12 [History] Ezetimibe 10 mg [Zetia 10 MG] 10 mg PO DAILY 12/17/12 [History] Metformin HCl [Glucophage] 1,000 mg PO BIDWM 12/17/12 [History] Amlodipine Besylate 5 mg [Norvasc 5 mg] 10 mg PO DAILY 12/23/12 [History] Clopidogrel Bisulfate [PLAVIX 75 MG Tablet] 75 mg PO DAILY 12/30/12 [History] Carboxymethylcellulose Sodium [Thera Tears] 1 drop OP BID 09/08/14 [History] Omeprazole [Prilosec] 20 mg PO DAILY 09/11/14 [History] Calcium Citrate/Vitamin D3 [Citracal + D Caplet] 1 tab PO DAILY 11/18/14 [History] Simvastatin 20 mg PO DAILY 11/18/14 [History] Glimepiride 1 tab PO DAILY 12/31/15 [History] Letrozole 1 tab PO DAILY 12/31/15 [History] Multivitamin W-Minerals/Lutein [Centrum Silver Tablet] 1 tab PO DAILY 12/31/15 [History] Chlorthalidone 25 mg PO DAILY 02/26/16 [History] Levothyroxine Sodium 50 Mcg [Synthroid 50 Mcg] 75 mcg PO 0600 02/26/16 [History] Alendronate Sodium 70 mg PO WEEKLY 11/17/18 [History] Ferrous Gluconate 324 mg PO DAILY 11/17/18 [History] Fexofenadine HCl [Ruby] 180 mg PO DAILY 11/17/18 [History] Magnesium Oxide 400 mg [Mag-Ox 400] 400 mg PO DAILY 11/17/18 [History] terbinafine HCL [Lamisil] 250 mg PO DAILY 11/17/18 [History] Hx Tetanus, Diphtheria Vaccination/Date Given: Yes Hx Influenza Vaccination/Date Given: Yes Hx Pneumococcal Vaccination/Date Given: Yes Travel Risk - International Travel Have you traveled outside of the country in past 3 weeks: No - Coronavirus Screening Are you exhibiting any of the following symptoms?: No Close contact with a COVID-19 positive Pt in past 14-21 Days: No - Vaccine Status Have you recieved a Covid-19 vaccination: Yes 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: [employer] - Vaccination Dates Date of 2cond Vaccination (if applicable): 11/20/20 - Review of Systems Constitutional: No Symptoms, No Fever, No Chills Eyes: No Symptoms Ears, Nose, & Throat: No Symptoms Respiratory: No Symptoms, No Cough, No Dyspnea Cardiac: No Symptoms, No Chest Pain, No Edema, No Syncope Abdominal/Gastrointestinal: No Symptoms, No Abdominal Pain, No Nausea, No Vomiting, No Diarrhea Genitourinary Symptoms: No Symptoms, No Dysuria Musculoskeletal: No Symptoms, No Back Pain, No Neck Pain Skin: No Symptoms, No Rash Neurological: No Symptoms, No Dizziness, No Focal Weakness, No Sensory Changes Psychological: No Symptoms Endocrine: No Symptoms Hematologic/Lymphatic: No Symptoms Immunological/Allergic: No Symptoms All Other Systems: Reviewed and Negative - Past Medical History Pertinent Past Medical History: Yes Neurological History: No Pertinent History ENT History: Cataracts Cardiac History: High Cholesterol, Hypertension Respiratory History: No Pertinent History Endocrine Medical History: Diabetes Type II, Hypothyroidism Musculoskeletal History: Arthritis GI Medical History: GERD History: Other Psycho-Social History: No Pertinent History Female Reproductive Disorders: Breast Cancer Other Medical History: Breast CA diagnosed 07/30.., Bladder tie up - Past Surgical History Past Surgical History: Yes Neuro Surgical History: No Pertinent History Cardiac: No Pertinent History Respiratory: No Pertinent History Gastrointestinal: Appendectomy, Cholecystectomy Genitourinary: Other Musculoskeletal: Joint Replacement Female Surgical History: Hysterectomy, Lumpectomy, Other Other Surgical History: cvl port placement. bilateral knee replacement. bladder lift. 4 lymph nodes removed with lumpectomy. Back surgery - Social History Smoking Status: Never smoker Exposure to second hand smoke: Yes Alcohol Use: None Drug Use: none Patient Lives Alone: No Significant Family History: diabetes, hypertension - Nursing Vital Signs Nursing Vital Signs: Initial Vital Signs Temperature 97.8 F 02/05/22 19:14 Pulse Rate 95 H 02/05/22 19:14 Respiratory Rate 18 02/05/22 19:14 Blood Pressure 208/102 02/05/22 19:14 O2 Sat by Pulse Oximetry 98 02/05/22 19:14 Pain Scale Pain Intensity 0 - Therese Coma Scale Best Eye Response ([place]): (4) open spontaneously Best Verbal Response (Therese): (5) oriented Best Motor Response (Therese): (6) obeys commands [place] Total: 15 - Physical Exam General Appearance: no apparent distress, alert Eye Exam: bilateral eye: normal inspection, PERRL, EOMI Ears, Nose, Throat Exam: normal ENT inspection, TMs normal, pharynx normal, moist mucous membranes Neck Exam: normal inspection, non-tender, supple, full range of motion Respiratory: normal breath sounds, lungs clear, airway intact, No chest tenderness, No respiratory distress Cardiovascular: regular rate/rhythm, normal heart sounds, normal peripheral pulses, No edema Gastrointestinal: soft, normal bowel sounds, No tenderness, No distention Back Exam: normal inspection, normal range of motion, No CVA tenderness Extremity Exam: normal inspection, normal range of motion, No pedal edema Mental Status: alert, oriented x 3, cooperative negative assembler Exam: normal hearing, normal speech, PERRL, tongue midline, No abnormal speech, No facial paresthesias Coordination/Gait: normal finger to nose, normal gait Motor/Sensory: no motor deficit, no sensory deficit, no pronator drift Skin Exam: normal color, warm, dry, No rash SpO2 Interpretation: normal SpO2: 98 O2 Delivery: Room Air - Course Nursing assessment & vital signs reviewed: Yes EKG Interpreted by Me: RATE (89), Sinus Rhythm, NORMAL AXIS, NORMAL INTERVALS, Right Bundle Branch Block - CT Exams Head CT Interpretation: Tele-radiologist Report (Stable nonacute senile brain compared to 12/20/2021) Ordered Tests: Active Orders 24 hr Category Date Time Status Towboat Captain STAT Care 02/05/22 19:15 Active EKG-ER Only STAT Care 02/05/22 19:14 Active IV Insertion STAT Care 02/05/22 19:14 Active Pulse Oximetry (ED) STAT Care 02/05/22 19:14 Active HEAD WITHOUT CONTRAST [CT] Stat Exams 02/05/22 19:10 Taken CBC W DIFF Stat Lab 02/05/22 19:25 Completed CMP Stat Lab 02/05/22 19:25 Completed TROPONIN Q3H Lab 02/05/22 19:25 Completed TROPONIN Q3H Lab 02/05/22 22:15 Ordered TROPONIN Q3H Lab 02/06/22 01:15 Ordered TROPONIN Q3H Lab 02/06/22 04:15 Ordered TROPONIN Q3H Lab 02/06/22 07:15 Ordered Transfer Order Routine Transfer 02/05/22 Ordered Medication Summary Generic Name Dose Route Start Last Admin Trade Name Freq PRN Reason Stop Dose Admin Sodium Chloride 1,000 mls @ 75 mls/hr 02/05/22 21:15 Sodium Chloride 0.9% 1000 Ml IV 03/07/22 21:14 .[id number] GUERO Discontinued Medications Generic Name Dose Route Start Last Admin Trade Name Cezar PRN Reason Stop Dose Admin Aspirin 324 mg 02/05/22 21:07 Aspirin 81 Mg Tab.Chew PO 02/05/22 21:08 STAT ONE Lab/Rad Data: Laboratory Result Diagrams 02/05/22 19:25 02/05/22 19:25 Laboratory Results 02/05/22 02/05/22 02/05/22 Range/Units 19:25 19:25 19:25 WBC (4.0-10.5) x10^3/uL RBC (4.1-5.4) x10^6/uL Hgb (12.0-16.0) g/dL Hct (35-47) % MCV (78-100) fL MCH (26-32) pg MCHC (32-36) g/dL RDW (11.5-14.0) % Plt Count (150-450) x10^3/uL MPV (7.5-11.0) fL Gran % (36.0-66.0) % Immature Gran % (Auto) (0.00-0.4) % Nucleat RBC Rel Count (0.00-0.1) % Eos # (Auto) (0-0.5) x10^3/uL Immature Gran # (Auto) (0.00-0.03) x10^3u/L Absolute Lymphs (auto) (1.0-4.6) x10^3/uL Absolute Monos (auto) (0.0-1.3) x10^3/uL Absolute Nucleated RBC (0.00-0.01) x10^3u/L Lymphocytes % (24.0-44.0) % Monocytes % (0.0-12.0) % Eosinophils % (0.00-5.0) % Basophils % (0.0-0.4) % Absolute Granulocytes (1.4-6.9) x10^3/uL Basophils # (0-0.4) x10^3/uL Sodium 137 (137-145) mmol/L Potassium 3.8 (3.5-5.1) mmol/L Chloride 96 L (98-107) mmol/L Carbon Dioxide 31 H (22-30) mmol/L Anion Gap 13.8 (5-15) MEQ/L BUN 18 H (7-17) mg/dL Creatinine 0.88 (0.52-1.04) mg/dL Estimated GFR > 60.0 ML/MIN Glucose 103 (74-106) mg/dL Calcium 10.0 (8.4-10.2) mg/dL Total Bilirubin 0.50 (0.2-1.3) mg/dL AST 37 H (14-36) U/L ALT 20 (0-35) U/L Alkaline Phosphatase 54 (38-126) U/L Troponin I < 0.012 (0.000-0.034) ng/mL Serum Total Protein 7.1 (6.3-8.2) g/dL Albumin 4.3 (3.5-5.0) g/dL Influenza Type A Ag NEGATIVE (NEGATIVE) Influenza Type B Ag NEGATIVE (NEGATIVE) RSV (PCR) NEGATIVE (Negative) SARS-CoV-2 (PCR) NEGATIVE (NEGATIVE) 02/05/22 Range/Units 19:25 WBC 7.4 (4.0-10.5) x10^3/uL RBC 4.24 (4.1-5.4) x10^6/uL Hgb 13.1 (12.0-16.0) g/dL Hct 39.8 (35-47) % MCV 93.9 (78-100) fL MCH 30.9 (26-32) pg MCHC 32.9 (32-36) g/dL RDW 13.2 (11.5-14.0) % Plt Count 340 (150-450) x10^3/uL MPV 9.7 (7.5-11.0) fL Gran % 54.1 (36.0-66.0) % Immature Gran % (Auto) 0.3 (0.00-0.4) % Nucleat RBC Rel Count 0.0 (0.00-0.1) % Eos # (Auto) 0.39 (0-0.5) x10^3/uL Immature Gran # (Auto) 0.02 (0.00-0.03) x10^3u/L Absolute Lymphs (auto) 2.26 (1.0-4.6) x10^3/uL Absolute Monos (auto) 0.69 (0.0-1.3) x10^3/uL Absolute Nucleated RBC 0.00 (0.00-0.01) x10^3u/L Lymphocytes % 30.4 (24.0-44.0) % Monocytes % 9.3 (0.0-12.0) % Eosinophils % 5.2 H (0.00-5.0) % Basophils % 0.7 (0.0-0.4) % Absolute Granulocytes 4.02 (1.4-6.9) x10^3/uL Basophils # 0.05 (0-0.4) x10^3/uL Sodium (137-145) mmol/L Potassium (3.5-5.1) mmol/L Chloride (98-107) mmol/L Carbon Dioxide (22-30) mmol/L Anion Gap (5-15) MEQ/L BUN (7-17) mg/dL Creatinine (0.52-1.04) mg/dL Estimated GFR ML/MIN Glucose (74-106) mg/dL Calcium (8.4-10.2) mg/dL Total Bilirubin (0.2-1.3) mg/dL AST (14-36) U/L ALT (0-35) U/L Alkaline Phosphatase (38-126) U/L Troponin I (0.000-0.034) ng/mL Serum Total Protein (6.3-8.2) g/dL Albumin (3.5-5.0) g/dL Influenza Type A Ag (NEGATIVE) Influenza Type B Ag (NEGATIVE) RSV (PCR) (Negative) SARS-CoV-2 (PCR) (NEGATIVE) - Progress Progress: improved Progress Note: Patient reassessed. Repeat neuro exam at her baseline. Telemetry neuro evaluated patient advised admission for MRI. Carotid ultrasound ordered. Case discussed with Dr. White covering Dr. Fried. Dr. White accepts admission to observation. Plan of care discussed with patient. She agrees to admission [facility] for further evaluation and treatment. Portions of this note were created with voice recognition technology. There may be grammatical, spelling, punctuation or sound alike errors 02/05/22 21:12 Aspirin administered. IV fluids ordered at a rate of 75 cc/h. 02/05/22 21:13 COVID test negative 02/05/22 21:14 Counseled pt/family regarding: lab results, diagnosis, rad results - Departure Departure Disposition: Observation Clinical Impression: Transient ischemic attack (TIA) Condition: Stable Critical Care Time: No Referrals: DIVINE FRIED [Primary Care Provider] - Follow up/PCP as directed
[2022-02-05 20:26] LABS: ALBUMIN 4.3 g/dL (3.5-5.0); ALKALINE PHOSPHATASE 54 U/L (38-126); ANION GAP 13.8 MEQ/L (5-15); BLOOD UREA NITROGEN 18 mg/dL (7-17); CHLORIDE 96 mmol/L (98-107); Carbon Dioxide 31 mmol/L (22-30); Creatinine 1 0.88 mg/dL (0.52-1.04); EST GLOMERULAR FILTRATION RATE > 60.0 ML/MIN; Glucose 103 mg/dL (74-106); Potassium 3.8 mmol/L (3.5-5.1); SGOT/AST 37 U/L (14-36); SGPT/ALT 20 U/L (0-35); SODIUM 137 mmol/L (137-145); Total Protein 7.1 g/dL (6.3-8.2)
[2022-02-05 20:33] LABS: INFLUENZA A NEGATIVE (NEGATIVE); INFLUENZA B NEGATIVE (NEGATIVE); RESPIRATORY SYNCTIAL VIRUS NEGATIVE (Negative); SARS-CoV-2 Xpert Express NEGATIVE (NEGATIVE)
[2022-02-05] MEDS ORDERED: BABY ASPIRIN 81 MG CHEW PO ONE (21:07)
[2022-02-05] MEDS ORDERED: BABY ASPIRIN 81 MG CHEW ONE (21:11)
[2022-02-05] MEDS ORDERED: Sodium Chloride 0.9% 1000 ML 1,000 ML IV SCH (21:15)
[2022-02-05] MEDS ORDERED: Senokot-S Tablet PO PRN (21:50)
[2022-02-05] MEDS ORDERED: MAALOX ES 30 ML UNIT DOSE PO PRN (21:50)
[2022-02-05] MEDS ORDERED: Zofran 4 MG/2 ML VIAL IV PRN (21:50)
[2022-02-05] MEDS ORDERED: TYLENOL 325 MG PO PRN (21:50)
[2022-02-05] MEDS ORDERED: MILK OF MAGNESIA 30 ML PO PRN (21:50)
[2022-02-06 03:18] LABS: Cholesterol 92 mg/dL (50-200); HDL CHOLESTEROL 43 mg/dL (40-60); LDL, DIRECT < 36 mg/dL (30-100); Risk Ratio 2.1; TRIGLYCERIDE 170 mg/dL (30-150)
[2022-02-06] MEDS ORDERED: METFORMIN HCL 1000 MG PO SCH (08:00)
[2022-02-06] MEDS ORDERED: Glucophage 500 MG PO SCH (08:00)
[2022-02-06] MEDS ORDERED: MEDICATION INTERVENTION MC SCH (08:15)
--- NOTE | 2022-02-06 08:47 | XRAY ---
Indication: Left-sided numbness and slurred speech. Stroke. Multiple contiguous axial images obtained through the head without contrast. Comparison: December 20, 2021. Again age-appropriate global atrophy and mild periventricular degenerative micro-ischemia bilaterally. No acute intracranial hemorrhage, abnormal extra-axial fluid collection, or mass effect. Fourth ventricle is midline without hydrocephalus. Bony calvarium intact. Again partial opacification right mastoid air cells presumed inflammatory. Visualized paranasal sinuses are clear. Impression: Continued nonacute senile brain with again partial opacification right mastoid air cells.
[2022-02-06] MEDS ORDERED: NON-FORMULARY ITEM (Glimepiride [Glimepiride] 1 MG Tablet) PO SCH (10:00)
[2022-02-06] MEDS ORDERED: MAG-OX 400 PO SCH (10:00)
[2022-02-06] MEDS ORDERED: SYNTHROID 75 MCG PO SCH (10:00)
[2022-02-06] MEDS ORDERED: NORVASC 5 MG PO SCH (10:00)
[2022-02-06] MEDS ORDERED: Amaryl 2 MG PO SCH (10:00)
[2022-02-06] MEDS ORDERED: DOCUSATE SODIUM 50 MG PO SCH (10:00)
[2022-02-06] MEDS ORDERED: Zetia 10 MG PO SCH (10:00)
[2022-02-06] MEDS ORDERED: OMEPRAZOLE 20 MG PO SCH (10:00)
[2022-02-06] MEDS ORDERED: CALCIUM CITRATE PO SCH (10:00)
[2022-02-06] MEDS ORDERED: BABY ASPIRIN 81 MG CHEW PO SCH (10:00)
[2022-02-06] MEDS ORDERED: Artificial Tears 15 ML OP SCH (10:00)
[2022-02-06] MEDS ORDERED: Calcium 500MG W/Vit D Tablet PO SCH (10:00)
[2022-02-06] MEDS ORDERED: ECOTRIN 81 MG PO SCH (10:00)
[2022-02-06] MEDS ORDERED: CLARITIN 10 MG PO SCH (10:00)
[2022-02-06] MEDS ORDERED: ELIQUIS 2.5 MG TABLET PO SCH (10:00)
[2022-02-06] MEDS ORDERED: NON-FORMULARY ITEM (Cetirizine Hcl [Zyrtec] 10 MG Tablet) PO SCH (10:00)
[2022-02-06] MEDS ORDERED: Docusate Sodium 100 MG PO SCH (10:00)
[2022-02-06] MEDS ORDERED: FEOSOL 325 MG PO SCH (10:00)
[2022-02-06] MEDS ORDERED: THERAGRAN MULTIVITAMIN PO SCH (10:00)
[2022-02-06] MEDS ORDERED: CARBOXYMETHYLCELLULOSE SODIUM OP SCH (10:00)
[2022-02-06] MEDS ORDERED: Protonix 40MG Tablet PO SCH (10:00)
[2022-02-06] MEDS ORDERED: VITAMIN D3 PO SCH (10:00)
[2022-02-06] MEDS ORDERED: NON-FORMULARY ITEM (Multivitamin W-Minerals/Lutein [Centrum Silver Tablet] 1 EACH Tablet) PO SCH (10:00)
--- NOTE | 2022-02-06 12:05 | XRAY ---
Indication: TIA. Hypertension. Two-dimensional sonogram and color Doppler imaging of the carotid arteries of the neck performed. Comparison: December 18, 2012. Examination of the right carotid circulation again demonstrates tortuous common carotid artery. Carotid bulb demonstrates worsening moderate heterogeneous plaquing extending to the origin/proximal internal carotid and origin external carotid arteries. PSV of the CCA is 136 cm/s. PSV of the ICA is 142 cm/s. ICA/CCA ratio is 1.0. Normal antegrade vertebral artery flow. Examination of the left carotid circulation again demonstrates tortuous common carotid artery. Carotid bulb demonstrates minimal worsening eccentric mild calcified plaquing. Remaining internal carotid and external carotid arteries are patent. PSV of the CCA is 73 cm/s. PSV of the ICA is 69 cm/s. ICA/CCA ratio is 0.9. Normal antegrade vertebral artery flow. Impression: Worsening arteriosclerotic plaquing, right greater than left as detailed above. Velocity measurements and ratios are negative for hemodynamically significant flow limiting stenosis.
--- NOTE | 2022-02-06 15:58 | XRAY ---
Indication: Acute stroke. Multi-slab 3-D [id number] MRA [place] performed. Comparison: None Distal internal carotid arteries are bilaterally symmetric without critical stenosis/obstruction. Normal carotid terminus with normal branching A1 and M1 segments bilaterally. More distal left/right anterior cerebral, left/right middle cerebral, and right posterior communicating arteries are normal in MRA appearance. Posterior circulation demonstrates normal MRA appearance to the left/right distal vertebral, basilar, left/right posterior cerebral, and left/right superior cerebellar arteries. Impression: Negative MRA [place].
--- NOTE | 2022-02-06 15:59 | XRAY ---
Indication: Acute stroke. Sagittal, coronal, and axial MRI brain performed without contrast using pre and post T1, T2, FLAIR, diffusion, ADC sequences. 15 cc Dotarem contrast used. Comparison: None Age-appropriate global atrophy and moderate periventricular degenerative micro-ischemia signal bilaterally. Minimal degenerative micro-ischemia signal in brainstem. No acute intracranial hemorrhage, abnormal extra-axial fluid collection. Diffusion images are negative for restricted signal. Following gadolinium, there is no abnormal enhancing intra or extra-axial mass. Fourth ventricle is midline without hydrocephalus. 7/8 cranial nerve complex bilaterally symmetric. Normal appearing craniocervical junction and sella turcica. Paranasal sinuses are clear. Fluid signal in both mastoid air cells right greater than left presumed inflammatory. Impression: 1. Atrophy and degenerative micro-ischemia within normal limits for patient's age. 2. No acute intracranial abnormalities or evidence for evolving large vessel territorial stroke. 3. Negative contrast exam. 4. Incidental fluid signal in both mastoid air cells presumed inflammatory.
[2022-02-06 16:02] VITALS: BP 145/76; PULSE 94; O2SAT 95
[2022-02-06] MEDS ORDERED: LIPITOR 40MG PO SCH (22:00)
[2022-02-06] MEDS ORDERED: NON-FORMULARY ITEM (Ubidecarenone [Coq10] 50 MG Tab.Chew) PO SCH (22:00)
[2022-02-07] MEDS ORDERED: SYNTHROID 50 MCG PO SCH (06:00)
[2022-02-12] MEDS ORDERED: Fosamax 70 MG PO SCH (06:00)
--- NOTE | 2022-02-25 10:55 | SSS ---
DISCHARGE DIAGNOSIS: TRANSIENT ISCHEMIC ATTACK. HISTORY: The patient is an 86-year-old white female patient with recent history of transient ischemic attack which was transferred to [facility] at the time approximately a week ago. The patient was admitted to [facility] after receiving clot buster medications for what was felt to be potential evolving CVA. The patient had MRI, MRA and full evaluation at that time. The patient had previously been on aspirin and Plavix and was apparently changed to Xarelto recently by her pressure washer prior to this occurring. The patient after her stay in [facility] was discharged on Xarelto. She had been seen in my office and was doing reasonably well after this but presented to the emergency room again with similar type symptoms consistent with transient ischemic attack as she had previously. The patient was admitted to the hospital once again. Teleneurology consult was obtained and the patient was placed in observation. The patient's symptoms had essentially completely resolved after initial 24 hours. HOSPITAL COURSE: After the patient's 24 hour stay on telemetry, the decision was made to place her on Eliquis at 2.5 mg twice a day. Apparently that is the dose she takes that they placed her on Xarelto for which there was some confusion and thought that the Xarelto was normally not given more than just once a day and the thought was that the patient was meant to be placed on Eliquis originally anyway. PAST MEDICAL/SURGICAL HISTORY: Diabetes mellitus type II, hypertension, hypothyroidism, gastroesophageal reflux disease. HOME MEDICATIONS: Aspirin 81 mg a day which will be increased to 325 mg daily. She has been on Zetia 10 mg a day, Metformin 1,000 mg b.i.d., amlodipine 10 mg daily. She will be discontinued on the Plavix. Omeprazole 20 mg a day, Simvastatin 20 mg a day, glimepiride 1 tablet daily, Chlorthalidone 25 mg daily, levothyroxine 50 mg daily, Fosamax 70 mg once a week, Ruby 180 mg daily, Lamisil 250 mg daily. ALLERGIES: NKDA. PHYSICAL EXAMINATION: The patient's vital signs initially showed her temperature 97.8F, pulse 95, respiratory rate 18 and blood pressure 208/102 on initial evaluation in the emergency room. O2 saturation at 98%. HEENT: Normocephalic, atraumatic. Pupils equal round reactive to light. Extraocular movements intact. Oropharynx is pink and moist. NECK: Supple without lymphadenopathy, thyromegaly or JVD. CHEST: Clear to auscultation. HEART: Regular rate and rhythm without murmurs, rubs or gallops. ABDOMEN: Soft. No palpable masses. EXTREMITIES: Without cyanosis, clubbing or edema. NEUROLOGIC: The patient is alert and oriented x3 with no focal deficits. LAB DATA AND TESTS: The patient's lab evaluations showed hemoglobin 13.1, white count 7.4 and PLT count 240,000. Her electrolytes were essentially normal. BUN was slightly high at 18, creatinine 0.88. Her metabolic panel otherwise showed her liver enzymes to be slightly elevated with AST 37 with 36 being normal in our lab. Her bilirubin was normal. Swabs were negative for influenza, respiratory syncytial virus and COVID. Again at this point the patient will be discharged home on her usual medications with the exceptions we will be stopping the aspirin, place her on Eliquis 2.5 mg twice a day and follow up in the office in one week. We will also be getting a neurology consultation when available and presently in our area at best we can get one done in a week and up to one month in [place] and up to three months or more in [place]. She also has a pressure washer she will follow up with as well for further evaluation and management of her issues.
== END 2022-02-06 16:25 | disposition home or self-care (01) ==
LOC: ED 19:02 → MED SURG 21:48
PROVIDERS: ADMIT Family Medicine; ATTEND Family Medicine
DX: G45.8 Other transient cerebral ischemic attacks and related syndromes (principal); I10 Essential (primary) hypertension; E11.9 Type 2 diabetes mellitus without complications; E78.5 Hyperlipidemia, unspecified; E03.9 Hypothyroidism, unspecified; Z20.828 Contact with and (suspected) exposure to other viral communicable diseases; Z85.3 Personal history of malignant neoplasm of breast; Z79.01 Long term (current) use of anticoagulants; Z79.899 Other long term (current) drug therapy
CPT/HCPCS: 0241U; 36000; 36415; 70450; 70544; 70553; 80053; 80061; 82947; 83036; 83721; 84484; 85025; 93005; 93041; 93268; 93880; 94760; 99285; G0378; Q3014; A9270-GY